=== PATIENT | male | born 1980 | race Caucasian/White ===

== ENCOUNTER 2016-09-12 11:52 | Emergency (ER) | payer MEDICAID ==
[~2016-09-12] VITALS: Ht 175.3 cm; Wt 87.5 kg
[~2016-09-12 11:52] MED LIST: CEPH-443 PO; ERYT1OIN6 RIGHT EYE; VIGA RIGHT EYE
[2016-09-12 11:53] VITALS: Ht 175.3 cm; Wt 87.5 kg
[2016-09-12] MEDS ORDERED: KETOROLAC 60 MG INJ IM STA (12:51)
[2016-09-12] MEDS ORDERED: LIDOCAINE/MYLANTA 40 ML BTL PO ONE (13:00)
[2016-09-12] MEDS ORDERED: ONDANSETRON (ODT) 4 MG TAB ODT STA (14:34)
--- NOTE | 2016-09-12 14:41 | RADRPT ---
PROCEDURE: XR Chest. CLINICAL INDICATION: Chest pain TECHNIQUE: Single frontal chest x-ray. COMPARISON: None. FINDINGS: The lungs are adequately expanded and clear. There is no focal consolidation, pleural effusion, or pneumothorax. The heart and mediastinal contours are unremarkable. Bones are unremarkable. There a re no acute fractures. RPTAT: QQ IMPRESSION: No acute cardiopulmonary abnormality. .Xuan Spaulding MD, MD Date Time Electronically viewed and signed by .Xuan Spaulding MD, on 09/12/2016 14:40 .T/
--- NOTE | 2016-09-12 14:42 | ERD ---
ER Documentation Chief Complaint Date/Time DATE: 09/12/16 TIME: 14:33 Chief Complaint intermittent chest pain x 4 days HPI 35-year-old male presents for 4 days of chest pain that is substernal and across his entire chest. The chest pain gets better and worse but is always there. Is described as a pressure-like ache. He has not had pain like this before. ROS All systems reviewed and are negative except as per history of present illness. Medications Home Meds Active Scripts Erythromycin (Erythromycin Opth) 3.5 Gm Oint..gm., 1 APPLIC RIGHT EYE QID for 7 Days, EA Prov:HECTOR LEONARD PA-C 08/07/15 Moxifloxacin Hcl* (Vigamox*) 0.5% - 3 Ml Opht, 1 DROP RIGHT EYE TID for 7 Days, EA Prov:HECTOR LEONARD PA-C 08/07/15 Cephalexin* (Keflex*) 500 Mg Capsule, 500 MG PO QID for 10 Days, CAP Prov:HECTOR LEONARD PA-C 08/07/15 Allergies Allergies: Coded Allergies: No Known Allergy (Unverified , 09/12/16) PMhx/Soc Medical and Surgical Hx: pt denies Medical Hx, pt denies Surgical Hx Hx Alcohol Use: No Hx Substance Use: No Hx Tobacco Use: No Smoking Status: Never smoker Physical Exam Vitals Vital Signs Date Time Temp Pulse Resp B/P Pulse Ox O2 Delivery O2 Flow Rate FiO2 09/12/16 11:53 97.3 80 16 143/87 97 Physical Exam Const: [] Head: Atraumatic Eyes: Normal Conjunctiva ENT: Normal External Ears, Nose and Mouth. Neck: Full range of motion..~ No meningismus. Resp: Clear to auscultation bilaterally Cardio: Regular rate and rhythm, no murmurs Abd: Soft, non tender, non distended. Normal bowel sounds Skin: No petechiae or rashes Back: No midline or flank tenderness Ext: No cyanosis, or edema Neur: Awake and alert Psych: Normal Mood and Affect Results 24 hrs Laboratory Tests Test 09/12/16 12:55 Troponin I < 0.012ng/ml Current Medications Medications (Trade) Dose Ordered Sig/Noemy Route PRN Reason Start Time Stop Time Status Last Admin Dose Admin Miscellaneous Medication (Gi Cocktail (2)) 40 ml ONCE ONCE PO 09/12/16 13:00 09/12/16 13:01 DC 09/12/16 12:55 Ketorolac Tromethamine (Toradol) 60 mg ONCE STAT IM 09/12/16 12:51 09/12/16 12:52 DC 09/12/16 12:55 Procedures/MDM 35-year-old male with history of hypertension with chest pain. He has a negative troponin and nonischemic EKG and his pain was relieved with GI cocktail. He was also given Toradol. Believe GERD is the most likely suspect however I am going to discharge with instructions to obtain an echocardiogram as an outpatient. He is in stable condition and is currently asymptomatic. He was also given Zofran for nausea EKG interpretation: Normal sinus rhythm rate of 71, left axis deviation, no ST or T-wave changes concerning for acute ischemia, normal intervals. Chest x-ray interpretation: I see no acute process. See no pneumothorax, no pulmonary edema, normal diaphragms, no fractures Departure Diagnosis: Primary Impression: Chest pain Additional Impression: GERD (gastroesophageal reflux disease) Condition: Stable TONY PARK DO Sep 12, 2016 14:42
[2016-09-12] MEDS ORDERED: NAPR-688 PO (14:45)
[2016-09-12] MEDS ORDERED: RANI150T9 PO (14:45)
== END 2016-09-12 15:04 | disposition home or self-care (01) ==
LOC: FTE 11:52
DX: R07.9 Chest pain, unspecified (principal); K21.9 Gastro-esophageal reflux disease without esophagitis
CPT/HCPCS: 71010; 84484; 96372; J1885; Z7502; Z7610; 93005